=== PATIENT | female | born 1950 | race Caucasian/White ===

== ENCOUNTER 2024-11-07 09:17 | Outpatient (REF) | payer MEDICARE, SELFPAY ==
[2024-11-07 15:07] LABS: HCT 39.6 % (36.0-46.0); HGB 13.1 g/dL (11.2-15.7); MCH 31.3 pg (27.0-33.0); MCHC 33.1 % (32.0-36.0); MCV 95 fL (80-95); MPV 9.4 fL (8.0-11.0); Platelet Count 235 10^3/uL (130-400); RBC 4.19 10^6/uL (3.93-5.22); RDW 12.7 % (11.7-14.6); RDW-SD 43.9 fL; WBC 4.55 10^3/uL (4.4-10.8)
[2024-11-07 15:24] LABS: ALT 31 U/L (14-59); AST 23 U/L (15-37); Albumin 3.8 g/dL (3.4-5.0); Alkaline Phosphatase 81 U/L (46-116); Anion Gap 6.1 mmol/L (3-11); BUN 18 mg/dL (7-18); Bilirubin, Total 0.4 mg/dL (0.2-1.0); CO2 27.9 mmol/L (21.0-32.0); Calcium 9.1 mg/dL (8.5-10.1); Calculated LDL 59 mg/dL (<100); Chloride 104 mmol/L (98-107); Cholesterol 158 mg/dL (<200); Estimated GFR 90.70 (mL/min/1.73m2); Glucose 163 mg/dL (74-106); HDL Cholesterol 90 mg/dL (>or=50); Potassium 4.5 mmol/L (3.5-5.1); Sodium 138 mmol/L (136-145); Total Protein 6.8 g/dL (6.4-8.2); Triglyceride 47 mg/dL (<150)
[2024-11-07 15:37] LABS: Hemoglobin A1C 7.1 % (<5.7)
== END 2024-11-07 09:18 | disposition home or self-care (01) ==
LOC: NCHCN 09:17
PROVIDERS: Visit Provider Physician Assistant
DX: E11.9 Type 2 diabetes mellitus without complications (principal); E78.49 Other hyperlipidemia
CPT/HCPCS: 80053; 80061; 85027; 83036

== ENCOUNTER 2024-11-16 11:53 | Outpatient (REF) | payer MEDICARE, SELFPAY ==
[2024-11-16 15:26] LABS: COMMENT (LAB VIEW ONLY) < 13.00 mg/dL
== END 2024-11-16 11:54 | disposition home or self-care (01) ==
LOC: NCHCN 11:53
PROVIDERS: Visit Provider Physician Assistant
DX: E11.9 Type 2 diabetes mellitus without complications (principal)
CPT/HCPCS: 82043; 82570